=== PATIENT | female | born 1995 | race Two or more races ===

== ENCOUNTER 2021-05-24 11:52 | Emergency (ER) | payer OTHER ==
[~2021-05-24] VITALS: Ht 157.5 cm; Wt 71.7 kg
--- NOTE | 2021-05-24 11:59 | NUR ---
TO ER BED 10. BIB [facility] C/O POSSIBLE ALLERGIC REACTION AFTER USING A MASK, ON/OFF RASHES. C/O NAUSEA AND WAS GIVEN ZOFRAN 4MG FISHER TERRAPIN. PT ATTCHED TO MONITOR. PROVIDED WITH WARM BLANKET FOR COMFORT. WILL CONTINUE TO MONITOR.
[2021-05-24] MEDS ORDERED: diphenhydrAMINE HCL 50 MG CAPSULE ONE (12:14)
[2021-05-24] MEDS ORDERED: predniSONE 20 MG TABLET ONE (12:14)
[2021-05-24] MEDS ORDERED: FAMOTIDINE (20 MG) 20 MG TABLET ONE (12:14)
[2021-05-24] MEDS ORDERED: FAMOTIDINE (20 MG) 20 MG TABLET PO ONE (12:30)
[2021-05-24] MEDS ORDERED: diphenhydrAMINE HCL 25 MG CAPSULE PO ONE (12:30)
[2021-05-24] MEDS ORDERED: predniSONE 20 MG TABLET PO ONE (12:30)
[2021-05-24] MEDS ORDERED: PRED20TA PO (13:25)
[2021-05-24] MEDS ORDERED: EPIN0.3P3 IM (13:25)
[2021-05-24 13:31] VITALS: BP 108/73
--- NOTE | 2021-05-24 13:31 | NUR ---
Patient discharged to home in stable condition. Written and verbal after care instructions given. Patient verbalizes understanding of instruction.
== END 2021-05-24 13:31 | disposition home or self-care (01) ==
LOC: ER 11:54
DX: T78.40XA Allergy, unspecified, initial encounter (principal); F31.9 Bipolar disorder, unspecified; X58.XXXA Exposure to other specified factors, initial encounter
CPT/HCPCS: 99284; J7512; Q0163